=== PATIENT | male | born 1995 | race African-American/Black ===

== ENCOUNTER 2017-09-25 13:59 | Emergency (ER) | payer BC ==
[~2017-09-25] VITALS: Ht 167.6 cm; Wt 80.0 kg
[2017-09-25] MEDS ORDERED: LIDOCAINE HCL 2%/EPINEPHRINE/PF 10 ML VIAL INFIL ONE (14:45)
[2017-09-25] MEDS ORDERED: LIDOCAINE/EPINEPHR/TETRACAINE 3ML TP ONE (14:45)
[2017-09-25] MEDS ORDERED: TETANUS, DIPHTHERIA, PERTUSSIS VAC/PF 0.5ML (>7YR OLD) IM ONE (14:45)
[2017-09-25] MEDS ORDERED: LIDOCAINE HCL/PF 1% 10 MG/ML 5ML VIAL IJ ONE ×2 (15:45)
[2017-09-25] MEDS ORDERED: LIDOCAINE HCL 1% 20ML VIAL (Pyxis) INJ INFIL ONE ×2 (15:45→17:00)
[2017-09-25] MEDS ORDERED: LIDOCAINE HCL/EPINEPHRINE 1%-EPI 1:100,000 20 ML VIAL INFIL ONE (15:45)
[2017-09-25] MEDS ORDERED: LIDOCAINE HCL/PF 1% 10 MG/ML 5ML VIAL ONE ×4 (16:10→17:05)
[2017-09-25] MEDS ORDERED: HYDROCODONE/ACETAMINOPHEN 5/325MG TABLET PO ONE (16:45)
[2017-09-25] MEDS ORDERED: CEFTRIAXONE SODIUM 1 G/VIAL IM ONE (16:45)
[2017-09-25] MEDS ORDERED: BACITRACIN ZINC OINT UDPKT TOP ONE (17:00)
[2017-09-25 17:29] VITALS: BP 128/70
== END 2017-09-25 17:31 | disposition home or self-care (01) ==
LOC: ER 14:27
DX: S51.811A Laceration without foreign body of right forearm, initial encounter (principal); W13.8XXA Fall from, out of or through other building or structure, initial encounter; Y93.89 Activity, other specified; Y92.89 Other specified places as the place of occurrence of the external cause; Y99.8 Other external cause status
CPT/HCPCS: 12004; 90471; 90715; 96372; 99284; A4217; J0696; J3490; Z7610

== ENCOUNTER 2017-09-27 16:04 | Emergency (ER) | payer BC ==
[~2017-09-27] VITALS: Ht 188 cm; Wt 70.0 kg
[2017-09-27 16:11] VITALS: BP 131/78
== END 2017-09-27 16:23 | disposition home or self-care (01) ==
LOC: ER 16:04
DX: S61.411D Laceration without foreign body of right hand, subsequent encounter (principal); X58.XXXD Exposure to other specified factors, subsequent encounter; Y93.89 Activity, other specified; Y99.8 Other external cause status; Y92.89 Other specified places as the place of occurrence of the external cause
CPT/HCPCS: 99282

== ENCOUNTER 2017-10-02 15:16 | Emergency (ER) | payer BC ==
[~2017-10-02] VITALS: Ht 188 cm; Wt 65.0 kg
[2017-10-02 15:22] VITALS: BP 126/50
== END 2017-10-02 16:03 | disposition home or self-care (01) ==
LOC: ER 15:35
DX: S51.811D Laceration without foreign body of right forearm, subsequent encounter (principal); X58.XXXD Exposure to other specified factors, subsequent encounter
CPT/HCPCS: 99281; Z7610